=== PATIENT | female | born 1985 | race Caucasian/White ===

== ENCOUNTER 2017-07-01 13:54 | Inpatient (IN) | payer BC ==
[2017-07-01] MEDS ORDERED: Penicillin G Potassium IV* 5,000,000 UNITS in NS 0.9% 100 ML* 100 ML IVPB ONE (14:47)
[2017-07-01 15:39] LABS: ABS Basophils 0 10^3/ul (0-0.2); ABS Eosinophils 0 10^3/ul (0-0.6); ABS Lymphocytes 1.3 10^3/ul (1.0-4.8); ABS Monocytes 0.4 10^3/ul (0-0.8); ABS Neutrophils 6.2 10^3/ul (1.5-7.7); ABS Nucleated RBC 0 10^3/ul; Eosinophil % 0.5 % (0-6); Hematocrit 39 % (35-47); Hemoglobin 13.6 g/dl (12.0-16.0); Lymphocyte % 16.8 % (25-47); Mean Corpuscular HGB Conc 35 g/dl (31-36); Mean Corpuscular Hemoglobin 34 pg (27-31); Mean Corpuscular Volume 97 fL (80-97); Mean Platelet Volume 9 um3 (7.4-10.4); Nucleated Red Blood Cells % 0; Platelet Count 177 10^3/ul (150-450); Red Blood Count 3.98 10^6/ul (4.0-5.4); Red Cell Distribution Width 15 % (10.5-15)
[2017-07-01] MEDS: Penicillin G Potassium IV* 2,500,000 UNITS in NS 0.9% 100 ML* 100 ML IVPB SCH ×2 (19:34→23:39)
[2017-07-01] MEDS ORDERED: OBEPIDURAL* 250 ML EPIDURAL ONE (19:47)
--- NOTE | 2017-07-01 20:20 | HP ---
General Information - General Information Maternal Age: 32 Grav: 1 Para: 0 SAB: 0 IEA: 0 Estimated Due Date: 06/27/17 Determined By: LMP Gestational Age in Weeks and Days: 40 Weeks and 4 Days Maternal Blood Type and Rh: O Positive - Results this Serology/RPR Result: Non-Reactive Rubella Result: Immune HBsAg Result: Negative HIV Result: Negative GBS Culture Result: Positive Past Medical History Delivery History: See Records Pertinent Past Medical History: Non-Contributory Pertinent Past Surgical History: See Records Past Surgical History Comment: h/o tonsillectomy, ACL repair Pertinent Family History: Non-Contributory - Antepartal Records Antepartal Records: Reviewed, Complicated by: - h/o HSV, used valtrex from 36 wks until a few days ago when she ran out Review of Systems Constitutional: Comfortable CV Complaint: No Respiratory: Shortness of Breath: No Gastrointestinal: No Nausea/Vomiting, Normal Bowel Movement Genitourinary: Leaking Fluid - since about 1300, No Dysuria, No Bleeding Musculoskeletal: Contractions - started slowly, as of about 5:00, much stronger and about every 2-6 min Neurological: No Headache Movement: Normal Exam Allergies/Adverse Reactions: Allergies clindamycin Allergy (Verified 07/01/17 14:50) Hives/Diff.Breathing/Itching T99, P66, 123/77 Lab Values - Entire Visit: Laboratory Tests 07/01/17 07/01/17 15:15 15:15 WBC 8.0 RBC 3.98 L Hgb 13.6 Hct 39 MCV 97 MCH 34 H MCHC 35 RDW 15 Plt Count 177 MPV 9 Neut % (Auto) 77.8 Lymph % (Auto) 16.8 L Nelson % (Auto) 4.6 Eos % (Auto) 0.5 Baso % (Auto) 0.3 Absolute Neuts (auto) 6.2 Absolute Lymphs (auto) 1.3 Absolute Monos (auto) 0.4 Absolute Eos (auto) 0 Absolute Basos (auto) 0 Absolute Nucleated RBC 0 Nucleated RBC % 0 Blood Type O Positive Antibody Screen Negative - Measurements Height: 5 ft 5 in Weight: 151 lb Weight in lbs: 151 Body Mass Index (BMI): 25.1 Pre- Weight: 131 lb Weight Gained This : 20 lbs and 0 ozs - Exam Breast: Breast Exam Deferred Extremities: No Edema Heart: Normal Rhythm/Heart Sounds Lungs: Clear Bilaterally Rectal: Rectal Exam Deferred - Cervical Exam 1cm/90%/-2, vtx, grossly ruptured - Abdominal Exam Abdomen Exam: Non-Tender, Fundal Height Consistent with Dates Abdomen Exam Comment: EFW 7.5 lbs - Membranes Membrane Status: SROM - Ultrasound/Biophysical Profile Ultrasound Status: Not Done EFM Findings - External Monitor Findings Baseline Heart Rate: 135 External Monitor Findings: Accelerations Present, No Pattern of Variable or Late Decelerations, Variability Moderate Contractions: Irregular, Moderate, Strong Contraction Frequency: Q2-6 min Assessment/Plan - Reason for Visit Reason for Visit: Pt with SROM this afternoon, contractions initially slow but now getting more intense. Cervix in clinic was FT/50%, membranes swept. Now much more effaced. FHT reassuring - Obstetrical Risk Factors Obstetrical Risk Factors: GBS Positive, Post-Dates - Plan Plan: Early Labor, Antibiotic Prophylaxis Plan Comment: Admit to L&D, PCN for GBS Plan pitocin if contractions become more irregular or milder. Pt desires epidural when pain becomes worse. - Date/Time of Admission Date of Admission: 07/01/17 Time of Admission: 17:00
[2017-07-01] MEDS ORDERED: Famotidine TAB* 20 MG PO PRN (20:50)
[2017-07-01] MEDS ORDERED: Phenylephrine IV* 40 MCG/ML 10 ML SYRINGE IV PUSH PRN (20:50)
[2017-07-01] MEDS ORDERED: EPHEDrine (Pressors)* 50 MG/ML VIAL IV PUSH PRN ×2 (20:50)
[2017-07-01] MEDS ORDERED: Hetastarch in NS* 500 ML IV PRN (20:50)
[2017-07-01] MEDS ORDERED: Sodium Citrate/Citric Acid* 15 ML UDC PO PRN (20:50)
[2017-07-01] MEDS ORDERED: OBEPIDURAL* 250 ML EPIDURAL SCH (21:00)
[2017-07-01] MEDS ORDERED: Oxytocin in LR* 20 UNITS/1,000 ML BAG IVPB SCH (23:00)
[2017-07-02] MEDS: Phenylephrine IV* 40 MCG/ML 10 ML SYRINGE IV PUSH PRN ×2 (03:16→05:06)
[2017-07-02] MEDS: Penicillin G Potassium IV* 2,500,000 UNITS in NS 0.9% 100 ML* 100 ML IVPB SCH ×3 (03:22→11:28)
[2017-07-02] MEDS ORDERED: D5LR 1000 ML BAG* 1,000 ML IV SCH (07:00)
[2017-07-02] MEDS ORDERED: Glycerin ADULT SUPP PR PRN (13:53)
[2017-07-02] MEDS ORDERED: Acetaminophen TAB* 325 MG PO PRN (13:53)
[2017-07-02] MEDS ORDERED: Witch Hazel PAD* JAR TOPICAL PRN (13:53)
[2017-07-02] MEDS ORDERED: Dibucaine 1% 28.35 GM TUBE PR PRN (13:53)
[2017-07-02] MEDS ORDERED: Oxytocin in LR* 20 UNITS/1,000 ML BAG IVPB SCH (14:00)
[2017-07-02] MEDS ORDERED: Ammonia Inhalant* 1 EA AMP ONE (14:47)
[2017-07-02] MEDS ORDERED: Ibuprofen TAB* 600 MG ONE (14:58)
[2017-07-02] MEDS ORDERED: Dibucaine 1% 28.35 GM TUBE ONE (14:58)
[2017-07-02] MEDS ORDERED: Witch Hazel PAD* JAR ONE (14:58)
[2017-07-02] MEDS: Ibuprofen TAB* 600 MG PO PRN ×2 (15:34→20:54)
[2017-07-02] MEDS: Docusate CAP* 100 MG PO SCH ×2 (16:16→20:54)
[2017-07-02] MEDS ORDERED: Simethicone TAB* 80 MG TAB.CHEW PO SCH (17:30)
[2017-07-03] MEDS: Ibuprofen TAB* 600 MG PO PRN ×4 (04:11→21:53)
[2017-07-03] MEDS: Docusate CAP* 100 MG PO SCH ×3 (08:39→21:53)
[2017-07-03] MEDS ORDERED: Ferrous Gluconate TAB* 324 MG TAB PO SCH (09:00)
[2017-07-03 10:52] LABS: ABS Basophils 0.1 10^3/ul (0-0.2); ABS Eosinophils 0.1 10^3/ul (0-0.6); ABS Lymphocytes 1.8 10^3/ul (1.0-4.8); ABS Monocytes 0.6 10^3/ul (0-0.8); ABS Neutrophils 10.2 10^3/ul (1.5-7.7); ABS Nucleated RBC 0 10^3/ul; Eosinophil % 1.1 % (0-6); Hematocrit 33 % (35-47); Hemoglobin 11.2 g/dl (12.0-16.0); Lymphocyte % 13.9 % (25-47); Mean Corpuscular HGB Conc 34 g/dl (31-36); Mean Corpuscular Hemoglobin 34 pg (27-31); Mean Corpuscular Volume 99 fL (80-97); Mean Platelet Volume 10 um3 (7.4-10.4); Nucleated Red Blood Cells % 0.1; Platelet Count 137 10^3/ul (150-450); Red Blood Count 3.31 10^6/ul (4.0-5.4); Red Cell Distribution Width 15 % (10.5-15); White Blood Count 12.7 10^3/ul (3.5-10.8)
--- NOTE | 2017-07-03 15:19 | PTEDU ---
Patient Name: ANISA MUÑOZ ANISA MUÑOZ selected video: Follow Me Mum: [employer] [facility] Successful to view on 07/03/2017 at 3:17:48 PM from [id number]
[2017-07-04] MEDS: Ibuprofen TAB* 600 MG PO PRN ×2 (04:20→10:40)
[2017-07-04 08:04] VITALS: BP 111/63
[2017-07-04] MEDS: Docusate CAP* 100 MG PO SCH (10:40)
== END 2017-07-04 13:02 | disposition home or self-care (01) | DRG 542 ==
LOC: MCHOBOUT 13:54 → MCHOB 14:39
PROVIDERS: ADMIT Obstetrics & Gynecology; ATTEND Obstetrics & Gynecology
PROC: 10D07Z6 Extraction of Products of Conception, Vacuum, Via Natural or Artificial Opening (ICD-10-PCS; principal; 2017-07-02)
PROC: 0DQR0ZZ Repair Anal Sphincter, Open Approach (ICD-10-PCS; 2017-07-02)
DX: O48.0 Post-term pregnancy (principal); O70.20 Third degree perineal laceration during delivery, unspecified; D64.9 Anemia, unspecified; O99.824 Streptococcus B carrier state complicating childbirth; O69.81X0 Labor and delivery complicated by cord around neck, without compression, not applicable or unspecified; O90.81 Anemia of the puerperium; Z3A.40 40 weeks gestation of pregnancy; Z37.0 Single live birth
CPT/HCPCS: 36415; 59200; 85025; 86850; 86900; 86901; A9270-GY; J2540

== ENCOUNTER 2017-09-08 07:32 | Day surgery (SDC) | payer BC ==
--- NOTE | 2017-08-27 07:07 | HP ---
CC: Ben Olivares MD * PREOPERATIVE HISTORY AND PHYSICAL: DATE OF ADMISSION: 09/08/17 This patient is scheduled for same-day surgery admission by Dr. Conroy on 09/08/17. DATE OF PREOPERATIVE HISTORY AND PHYSICAL EXAMINATION: 08/26/17. ATTENDING SURGEON: Julio C Conroy MD * (dictated by Klaudia May NP) CHIEF COMPLAINT: Left inguinal hernia. HISTORY OF PRESENT ILLNESS: The patient is a 32-year-old female recently evaluated by Dr. Conroy for a left inguinal hernia. She delivered a baby girl 8 weeks ago and she had noticed soreness in the left inguinal region during her , and she had also noticed bulging in the right groin at the end of her , but she denied any pain in the right inguinal region. She denies any signs or symptoms to suggest incarceration or strangulation. She denies any dysuria or fevers or chills. Dr. Conroy has examined the patient and noted a reducible small left inguinal hernia. There was no right inguinal hernia palpated. Dr. Conroy discussed the findings with the patient and has recommended laparoscopic repair of the left inguinal hernia with mesh and exploration for right inguinal hernia with possible repair with mesh. Dr. Conroy discussed the nature of the surgical procedure, the relevant risks and benefits, the same-day surgery hospitalization, and today I reviewed the expected postoperative care and recovery. The patient has had a chance to ask questions and stated that she understands the information and is satisfied with the answers given to her questions. She will sign surgical consent on the day of surgery. PAST MEDICAL HISTORY: Significant for syncopal episodes with the last one occurring 1 year ago. She states that in 2010, she had a complete cardiac workup when she was living in [place], and she was told that her syncopal episodes were related to dehydration; she reports that her EKG typically shows inverted T waves in the anterior leads and this is normal for her. She has had no recent syncopal episodes. PAST SURGICAL HISTORY: Tonsillectomy and ACL reconstruction, both in 2006. OB HISTORY: 1, para 1. She delivered 8 weeks ago and is breast- feeding. MEDICATIONS: 1. Colace 100 mg 2 to 3 times a day as needed. 2. vitamin daily. ALLERGIES: CLINDAMYCIN causes rash. 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 She denies use of alcohol or other substances. She runs 5 to 6 times a week for exercise. FAMILY HISTORY: No known anesthesia complications, bleeding tendencies, or clotting disorders. REVIEW OF SYSTEMS: Constitutional: No fevers, chills, excessive fatigue. Endocrine: No diabetes or thyroid disease. Hematologic: No easy bruising or bleeding. No history of blood transfusions. Breasts: She is breast feeding. Respiratory: No dyspnea on exertion or chronic cough. Cardiovascular: No anginal chest pain or palpitations. She does have a history of syncopal episodes as described in past medical history. No recent syncopal episodes. Gastrointestinal: No nausea, vomiting, diarrhea, GI bleeding; she does take Colace for prevention of constipation. Genitourinary: No dysuria. Musculoskeletal: No joint or back pain. Integumentary: No chronic rashes or skin changes. Neurologic: No headache or blurred vision. General: No previous anesthesia complications or bleeding tendencies or clotting disorders. PHYSICAL EXAMINATION GENERAL SURVEY: The patient is a 32-year-old female, well developed, well nourished, in no acute distress. VITAL SIGNS: Height 65.2 Inches, weight 129 pounds, body mass index 21. Blood pressure 118/70, pulse 72 and regular, respiratory rate 16, temperature 98.6 tympanic. HEENT: Benign. NECK: Supple. No cervical lymphadenopathy. LUNGS: Breath sounds bilaterally, clear and equal. HEART: Regular rate and rhythm. No murmurs or rubs appreciated. ABDOMEN: Active bowel sounds. Soft, nondistended, nontender throughout. Inguinal exam is done by Dr. Conroy, reducible small left inguinal hernia. No right inguinal hernia palpated. PELVIC: Exam deferred. RECTAL: Exam deferred. EXTREMITIES: Warm without edema or skin ulceration. NEUROLOGIC: Alert and oriented x3. Steady gait. SKIN: Warm, dry, intact. IMPRESSION: Left inguinal hernia, possible right inguinal hernia. PLAN: Same-day surgery admission to Dr. Conroy' service on 09/08/17, for a laparoscopic left inguinal hernia repair with mesh and exploration for right inguinal hernia with possible repair with mesh. SONNY MAY, BOAT OFFICER [id number]/[facility] #: [id number] MAN[facility] PSYCHIATRIC CENTERAdriana
[~2017-09-08 07:32] MED LIST: Buffered Lidocaine 0.9% SYRIN* 5 ML/SYR SYRINGE INTRADERM ONE; Famotidine IV* 10 MG/ML 2 ML (20 mg) IV ONE
[2017-09-08] MEDS ORDERED: Midazolam* 1 MG/ML 5 ML VIAL (5 MG) ONE (07:46)
[2017-09-08] MEDS ORDERED: fentaNYL* 50 MCG/ML 2 ML VIAL (100 MCG VIAL) ONE ×2 (07:46→10:20)
[2017-09-08] MEDS ORDERED: Rocuronium* 10 MG/ML VIAL ONE (08:06)
[2017-09-08] MEDS ORDERED: ceFAZolin 2 GM PREMIX (*) 2 GM/50 ML BAG IVPB ONE (08:11)
[2017-09-08] MEDS ORDERED: Famotidine IV* 10 MG/ML 2 ML (20 mg) ONE (08:11)
[2017-09-08] MEDS ORDERED: Buffered Lidocaine 0.9% SYRIN* 5 ML/SYR SYRINGE ONE (08:11)
[2017-09-08] MEDS ORDERED: Bupivacaine 0.25% SDV* 30 ML ONE (08:31)
[2017-09-08] MEDS ORDERED: Ondansetron INJ* 2 MG/ML VIAL IV ONE (09:31)
[2017-09-08] MEDS ORDERED: DiMENhydriNATE IV* 50 MG/ML VIAL IV PUSH PRN (09:40)
[2017-09-08] MEDS ORDERED: Acetaminophen IV 1GM/100ML * 1,000 MG/100 ML VIAL IVPB ONE (09:40)
[2017-09-08] MEDS ORDERED: Naloxone* 0.4 MG/ML 1 ML VIAL IV PRN (09:40)
[2017-09-08] MEDS ORDERED: DiMENhydriNATE IV* 50 MG/ML VIAL ONE ×2 (09:44→12:16)
[2017-09-08] MEDS ORDERED: Lidocaine 2% PF * 5 ML VIAL ONE (09:44)
[2017-09-08] MEDS ORDERED: Propofol* 10 MG/ML 20 ML BTL IV PUSH ONE ×2 (09:44→11:00)
[2017-09-08] MEDS ORDERED: Dexamethasone IV* 4 MG/ML 1 ML (4 MG) ONE (09:44)
[2017-09-08] MEDS ORDERED: Succinylcholine* 20 MG/ML 10 ML VIAL ONE (09:44)
[2017-09-08] MEDS ORDERED: Ketorolac INJ* 30 MG/ML 1 ML VIAL ONE (09:44)
[2017-09-08] MEDS ORDERED: Acetaminophen IV 1GM/100ML * 100 ML ONE (10:59)
--- NOTE | 2017-09-08 11:17 | PN ---
Progress Note - Progress Note Date of Service: 09/08/17 Note: Preop Dx: Left Inguinal Hernia; possible Right Inguinal Hernia Postop Dx: bilateral indirect inguinal hernias Procedure: Laparoscopic repair bilateral inguinal hernias w/ mesh Anesthesia: GET Surgeon: Marycarmen Asst: KARIN Abdalal; VIKASH Aleman Fluids: 1300 ml EBL: < 25 ml Drains:none Specimen:none Findings: dictated
[2017-09-08] MEDS ORDERED: HYDROmorphone INJ* 2 MG/ML CARPUJECT SYRINGE ONE (11:37)
[2017-09-08] MEDS: HYDROmorphone INJ* 1 MG/ML CARPUJECT SYRINGE IV PRN ×3 (11:38→12:04)
[2017-09-08] MEDS ORDERED: oxyCODONE TAB* 5 MG TAB ONE ×2 (12:14→14:24)
[2017-09-08] MEDS: oxyCODONE TAB* 5 MG TAB PO PRN ×2 (12:15→14:26)
[2017-09-08 13:48] VITALS: BP 106/55
--- NOTE | 2017-09-09 06:30 | OP ---
CC: Dr. Ben Olivares * DATE OF OPERATION: 09/08/17 - [facility] DATE OF : 87 SURGEON: Julio C Conroy MD SERVICE LIAISON REPRESENTATIVE: KARIN Fuchs ANESTHESIA: General endotracheal. ANESTHESIOLOGIST: Zoey Agarwal MD PRE-OP DIAGNOSIS: Left inguinal hernia. POST-OP DIAGNOSIS: Bilateral inguinal hernias. OPERATIVE PROCEDURE: Laparoscopic preperitoneal repair of bilateral inguinal hernias with mesh. ESTIMATED BLOOD LOSS: Minimal. IV FLUIDS: Crystalloids. SPECIMEN: None. DRAINS: None. COMPLICATIONS: None. COUNTS: The instrument, needle, and sponge counts were correct. DESCRIPTION OF PROCEDURE: The patient was brought to the operating room and placed on table supine. Sequential compression devices were placed on both lower extremities. General anesthesia was administered. Lopez catheter was placed. Her abdomen was prepped and draped in the usual sterile fashion. Time- out was performed. Local anesthetic was infiltrated into the skin and soft tissue prior to making each incision. The initial incision was a curvilinear infraumbilical incision using sharp and blunt dissection. The anterior rectus fascia was identified to the left of midline and the rectus fascia was incised. The underlying muscle was retracted laterally. A preperitoneal balloon dissector was then positioned down to the pubic symphysis and insufflated under direct visualization. The peritoneal blunt dissector was removed and replaced with a 12-mm blunt trocar. Carbon dioxide was insufflated to a pressure of 10 mmHg. Two 5-mm trocars were placed in the lower midline. Dissection proceeded from the midline to the left side initially, identifying and preserving the inferior epigastric vessels and completing dissection on lateral to the anterior superior iliac spine. An indirect inguinal hernia was identified. The sac was dissected off the round ligament and sac was entered during this dissection. Ultimately, it was closed with endoscopic clips. The attention was then turned to the right side where a similar hernia was identified with again the sac being entered and subsequently closed with endoscopic clips. Repair on each side was performed with the Medtronic ProGrip mesh, which was cut to fashion patches that would cover the direct, indirect, and femoral spaces. The mesh was positioned first on the right side being sure to bring this mesh to the midline and below the Lonnie's ligament and then unfurling it fully to complete the repair of the right side. The repair was then completed on the left side in similar fashion and after completing that the preperitoneal space was allowed to deflate and because of intraperitoneal gas, peritoneoscopy was performed. The 12-mm port was removed and then its position was reestablished within the peritoneal cavity. The peritoneal cavity was insufflated with carbon dioxide to a pressure of 15 mmHg. Inspection of the inguinal regions revealed excellent coverage of the mesh with no openings within in the peritoneum. Subsequently carbon dioxide was released. The ports were removed. The infraumbilical port site was closed with 0 Vicryl to approximate the posterior rectal sheath and anterior rectus sheath in 2 layers. The skin incisions were then closed with 4-0 Monocryl in subcuticular fascia. Steri-Strips were applied. The patient tolerated this procedure well. She was extubated, then transferred to Recovery in a stable condition. [id number]/[facility] #: [id number] MTDAdriana
== END 2017-09-08 14:38 | disposition home or self-care (01) ==
LOC: OR 07:32
PROVIDERS: ATTEND Surgery
DX: K40.20 Bilateral inguinal hernia, without obstruction or gangrene, not specified as recurrent (principal); R94.31 Abnormal electrocardiogram [ECG] [EKG]; K58.9 Irritable bowel syndrome, unspecified
CPT/HCPCS: 81025; A9270-GY; J0330; J0690; J1100; J1170; J1240; J1885; J2250; J2405; J2704; J3010

== ENCOUNTER 2018-09-04 17:31 | Emergency (ER) | payer BC ==
--- OUTSIDE RECORDS SUMMARY | 2018-09-04 17:51 | XMS REPORT | Continuity of Care Document ---
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 Ben Olivares MD Primary Care Physician Unavailable Payers Date Identification Numbers Payment Provider Subscriber Effective: 2016 Policy Number: [id number] BC/BS Of KALIA Julio C Almeida PayID: [id number] [place] [address] Advance Directives Description No Information Available Problems Description No Information Family History Date Family Member(s) Observation Comments Father 65 Father No Current Problems Mother 64 Mother No Current Problems Paternal Grandmother Alcoholism Paternal Grandmother [place] Social History Type Date Description Comments Sex Unknown Education Highest Level Completed, Master's Degree Marital Status Legal Status: Diet Healthy, Well Balanced Sleep Reports normal sleep activity 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[employer], [employer] Tobacco Use Start: Unknown Never Smoked Cigarettes ETOH Use Social Alcohol Recreational Drug Use Denies Drug Use Tobacco Use Start: Unknown Nonsmoker Smoking Status Reviewed: 10/28/16 Nonsmoker Exercise Type/Frequency Exercises regularly Currently Active 09/01/2016 Patient is currently sexually active STD's No STD History Allergies, Adverse Reactions, Alerts Active Allergies Reaction Severity Comments Date Clindamycin rash 08/28/2016 Seasonal 08/28/2016 Medications Active Medications SIG Qnty Indications Ordering Provider Date Amoxicillin 1 tablet twice a 14tabs J02.0 Ben Olivares, 08/11/2018 875mg day for 7 days. M.D. Tablets Claritin use by mouth Unknown 10mg Tablets everyday every day Unknown Tablets History Medications Diflucan take 1 tablet by 2tabs Meagan Vang 08/03/2018 - 150mg Tablets mouth for one DAVID Oden 08/11/2018 dose may repeat in 3-5 days Amoxicillin/Clavulanat 1 by mouth twice 14tabs J01.00 Omkar Gordon 2018 - e Potassium a day MD Charlene 08/03/2018 875-125mg Tablets Atovaquone-Proguanil 1 by mouth every 30tabs [place] 08/28/2016 - HCL day starting 2 LUCAS Falcon 10/28/2016 250-100mg Tablets days prior to travel and continuing x 7 days after return Fludrocortisone Unknown - Acetate 07/06/2018 0.1mg Tablets Immunizations CPT Code Status Date Vaccine Lot # [id number] Given 08/28/2016 Hep A Adlt Immunization [id number] Vital Signs Date Vital Result Comment 08/11/2018 9:09am BP Systolic 102 mmHg BP Diastolic 68 mmHg Heart Rate 72 /min Body Temperature 97.9 F Respiratory Rate 18 /min Weight 122.38 lb 07/07/2018 4:28pm BP Systolic 116 mmHg BP Diastolic 60 mmHg Heart Rate 72 /min Body Temperature 98.6 F Respiratory Rate 16 /min Height 65 inches 5'5" Weight 124.50 lb BMI (Body Mass Index) 20.7 kg/m2 10/28/2016 12:58pm BP Systolic 114 mmHg BP Diastolic 62 mmHg Heart Rate 64 /min Body Temperature 98.7 F Height 65 inches 5'5" Weight 129.25 lb BMI (Body Mass Index) 21.5 kg/m2 08/28/2016 3:07pm BP Systolic 110 mmHg BP Diastolic 70 mmHg Heart Rate 66 /min Body Temperature 98.6 F Height 65 inches 5'5" Weight 128.25 lb BMI (Body Mass Index) 21.3 kg/m2 Results Test Date Facility Test Result H/L Range Note Laboratory test 08/11/2018 [facility] TSH <pending> 0.5-5.0 finding Laboratory test 08/11/2018 [facility] Quickstrep POSITIVE Negative finding (607)- - Urine 10/28/2016 [facility] SP Grav 1.015 (Fma) (607)- - Urine, (Fma/CMC/CTX) positive Ua - Non Micro (Fma) 10/28/2016 [facility] Appearance clear (607)- - Color yellow Glucose, Urine (Fma/CMC/CTX) negative Bilirubin negative Ketones negative SP Grav 1.015 Blood negative PH 5.0 Protein negative Urobil 0.2 Nitrite negative Leukocytes (Fma/CMC/Centrex) negative Procedures Description No Information Available Encounters Type Date Location Provider Dx Diagnosis Office Visit 07/07/2018 Main Office Omkar Gordon J01.00 Acute maxillary 4:00p MD Charlene sinusitis, unspecified Office Visit 10/28/2016 Main Office Ana Dang, N91.1 Secondary amenorrhea 1:00p Afnp-C Office Visit 08/28/2016 Main Office Cary Falcon, Z00.00 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 Start salt water gargles. Sambucol Cold and Flu Elderberry Tablets. Start Vitamin C 2,000 mg. Good nutrient filled foods- fruits, vegetables.N76.0 Acute vaginitisComments:Wait until swab comes back, may be bacterial component. Not overly symptomatic.
--- NOTE | 2018-09-04 18:00 | ED ---
Abdominal Pain/Female - HPI Summary HPI Summary: This patient is a 33 year old F presenting to [facility] accompanied by her with a chief complaint of lower cramping abdominal pain with multiple bouts of diarrhea with increasing amounts of blood with each bout after a run today around 12:30pm. Pain rated 4/10 in severity. Patient reports feeling generally ill and fatigued prior to onset of symptoms. Patient reports multiple illness for the past two months beginning with strep, requiring 10 days of abx and two yeast infections requiring 7 days of antibiotics. Additionally reports productive cough for the past 13 days that is worse at night and in the morning. MP 08/23/18. Has an appointment scheduled with her PCP on 09/06/18. - History of Current Complaint Chief Complaint: Con Stated Complaint: "ABD PAIN BLOOD IN STOOL PER PT" Time Seen by Provider: 09/04/18 17:45 Hx Obtained From: Patient Hx Last Menstrual Period: 08/23/18 Onset/Duration: Lasting Hours Timing: Constant Severity Currently: Moderate Pain Intensity: 4 Pain Scale Used: 0-10 Numeric Location: Other - lower Radiates: No Character: Cramping Aggravating Factor(s): Nothing Alleviating Factor(s): Nothing Associated Signs and Symptoms: Positive: Cough, Blood in Stool, Diarrhea Allergies/Adverse Reactions: Allergies Allergy/AdvReac Type Severity Reaction Status Date / Time clindamycin Allergy Hives/Itchi Verified 09/04/18 17:38 ng ENVIRONMENTAL Allergy SEASONAL Uncoded 09/08/17 07:50 PMH/Surg Hx/FS Hx/Imm Hx Cardiovascular History: Reports: Other Cardiovascular Problems/Disorders - HX OF VASOVAGAL-USUALLY WITH DEHYDRATION Denies: Hx Pacemaker/ICD GI History: Reports: Hx Irritable Bowel Sensory History: Denies: Hx Contacts or Glasses, Hx Hearing Aid Opthamlomology History: Denies: Hx Contacts or Glasses EENT History: Reports: Hx Seasonal Allergies - Surgical History Surgery Procedure, Year, and Place: 05/2006-LEFT KNEE ACL REPAIR. 11/2006- TONSILLECTOMY Hx Anesthesia Reactions: No Infectious Disease History: No Infectious Disease History: Denies: Traveled Outside the [place] in Last 30 Days - Family History Known Family History: Negative: Blood Disorder - Social History Alcohol Use: Occasionally Substance Use Type: Reports: None Smoking Status (MU): Never Smoked Tobacco Review of Systems Positive: Fatigue Positive: Cough Positive: Abdominal Pain, Diarrhea - with blood. Negative: Vomiting All Other Systems Reviewed And Are Negative: Yes Physical Exam - Summary Physical Exam Summary: Appearance: Well-appearing, Well-nourished, lying in bed comfortably Skin: Warm, dry, no obvious rash Eyes: sclera anicteric, no conjunctival pallor ENT: mucous membranes moist, pharynx appears normal Neck: Supple, nontender Respiratory: Clear to auscultation, no signs of respiratory distress Cardiovascular: Normal S1, S2. No murmurs. Normal distal pulses in tibial and radial bilaterally. Abdomen: Soft, normal active bowel sounds present Mild lower abdominal tenderness with peritoneal signs, normal rectal exam Musculoskeletal: Normal, Strength/ROM Intact Neurological: A&Ox3, awake and alert, mentation is normal, speech is fluent and appropriate Psychiatric: affect is normal, does not appear anxious or depressed Triage Information Reviewed: Yes Vital Signs On Initial Exam: Initial Vitals Temp Pulse Resp BP Pulse Ox 99.5 F 78 16 134/89 98 09/04/18 17:33 09/04/18 17:33 09/04/18 17:33 09/04/18 17:33 09/04/18 17:33 Vital Signs Reviewed: Yes Diagnostics - Vital Signs Vital Signs Temp Pulse Resp BP Pulse Ox 09/04/18 17:33 99.5 F 78 16 134/89 98 - Laboratory Result Diagrams: 09/04/18 18:01 09/04/18 18:01 Lab Statement: Any lab studies that have been ordered have been reviewed, and results considered in the medical decision making process. Re-Evaluation - Re-Evaluation First Eval Re-Evaluation Time: 21:15 Comment: Discussed results with the patient and plan for a CT. Abdominal Pain Fem Course/Dx - Course Course Of Treatment: 33 year old F presenting to [facility] accompanied by her with a chief complaint of lower cramping abdominal pain with multiple bouts of diarrhea with increasing amounts of blood with each bout after a run today around 12:30pm. Stool occult blood is positive. Patient is given singulair and zyrtec for respiratory complaints. This patient will be signed out to Dr. Evans, pending CT abd/pel. Dx colitis. - Diagnoses Differential Diagnosis: Positive: Other - colitis Provider Diagnoses: Infectious colitis Discharge - Sign-Out/Discharge Documenting (check all that apply): Sign-Out Patient - pending dispo, awaiting CT abd/pel Signing out patient TO: Dmitriy Evans Patient Received Moderate/Deep Sedation with Procedure: No - Discharge Plan Condition: Stable Disposition: HOME Prescriptions: Levofloxacin TAB* [Levaquin TAB*] 500 mg PO DAILY #7 tab metroNIDAZOLE [Flagyl 500 MG TAB] 500 mg PO TID #20 tab oxyCODONE/Acetamin 5/325 MG* [Percocet 5/325 TAB*] 1 tab PO Q6H PRN #14 tab MDD 4 PRN Reason: Pain Patient Education Materials: Infectious Colitis (ED) Referrals: Ben Olivares MD [Primary Care Provider] - Additional Instructions: In terms of your GI symptoms, the most likely culprit seems to be some type of infection, but those tests take several days to come back. In terms of your respiratory symptoms, I am inclined to ramp up your allergy medications before thinking about another course of antibiotics. Try the claritin daily, and the singulair taken at bedtime. If it's going to work you will generally know in a few days. - Billing Disposition and Condition Condition: STABLE Disposition: Home - Attestation Statements Document Initiated by Luis M: Yes Documenting Scribe: Suzi Kelly Provider For Whom Luis M is Documenting (Include Credential): Kevin Fitch MD Scribe Attestation: ISuzi, scribed for Kevin Fitch MD on 09/06/18 at 0715. Scribe Documentation Reviewed: Yes Provider Attestation: The documentation as recorded by the Suzi moran accurately reflects the service I personally performed and the decisions made by me, Kevin Fitch MD Status of Scribe Document: Viewed
[2018-09-04] MEDS ORDERED: Montelukast Sodium TAB* 10 MG PO ONE (18:05)
[2018-09-04] MEDS ORDERED: LoraTADine TAB(NF) 10 MG TAB (AUTOSUB to CETIRIZINE) PO ONE (18:05)
[2018-09-04 18:25] LABS: ABS Basophils 0.1 10^3/ul (0-0.2); ABS Eosinophils 0.1 10^3/ul (0-0.6); ABS Lymphocytes 1.1 10^3/ul (1.0-4.8); ABS Monocytes 0.6 10^3/ul (0-0.8); ABS Neutrophils 6.3 10^3/ul (1.5-7.7); Hematocrit 40 % (35-47); Hemoglobin 13.5 g/dL (12.0-16.0); Lymphocyte % 13.8 %; Mean Corpuscular HGB Conc 34 g/dL (31-36); Mean Corpuscular Hemoglobin 31 pg (27-31); Mean Corpuscular Volume 94 fL (80-97); Mean Platelet Volume 8.7 fL (7.4-10.4); Platelet Count 201 10^3/uL (150-450); Red Cell Distribution Width 13 % (10.5-15); White Blood Count 8.1 10^3/uL (3.5-10.8)
[2018-09-04] MEDS ORDERED: Cetirizine* 10 MG TAB PO ONE (18:30)
[2018-09-04 18:40] LABS: Albumin 4.3 g/dL (3.2-5.2); Albumin/Globulin Ratio 1.8 (1-3); BUN/Creatinine Ratio 21.7 (8-20); C Reactive Protein 1.67 mg/L (<8.01); Calcium 9.7 mg/dL (8.6-10.3); EGFR African American 96.4 (>60); EGFR Non-African American 79.7 (>60); Globulin 2.4 g/dL (2-4); Potassium 3.9 mmol/L (3.5-5.0); Total Bilirubin 0.4 mg/dL (0.2-1.0); Total Protein 6.7 g/dL (6.4-8.9)
[2018-09-04] MEDS ORDERED: Ondansetron INJ* 2 MG/ML VIAL IV ONE (19:28)
[2018-09-04] MEDS ORDERED: NS 0.9% 1000 ML** 2,000 ML IV ONE (19:28)
[2018-09-04] MEDS ORDERED: Iohexol 300* (CONTRAST) 10 ML SDV IV ONE (21:01)
[2018-09-04 21:13] LABS: Urine Appearance Clear; Urine Bilirubin Negative (Negative); Urine Blood Negative (Negative); Urine Color Yellow; Urine Glucose Negative (Negative); Urine Ketones Trace (Negative); Urine Nitrite Negative (Negative); Urine Protein Negative (Negative); Urine Specific Gravity 1.012 (1.010-1.030); Urine Urobilinogen Negative (Negative)
--- NOTE | 2018-09-04 22:16 | ED ---
Progress - Progress Note Progress Note: Receiving sign-out from Dr. Fitch at [address] Abd/Pel. CT Abd/Pel: Infectious colitis cecum through proximal transverse colon. Results are significant for infectious colitis. Patient will be discharged and prescribed ABx to treat the colitis. This plan was discussed with the patient and she was agreeable with this plan. Re-Evaluation - Re-Evaluation First Eval Re-Evaluation Time: 21:15 Comment: Discussed results with the patient and plan for a CT. Course/Dx - Course Course Of Treatment: Receiving sign-out from Dr. Fitch at [address] Abd/ Pel. CT Abd/Pel: Infectious colitis cecum through proximal transverse colon. Results are remarkable for infectious colitis. Patient will be discharged and prescribed ABx to treat the colitis. This plan was discussed with the patient and she was agreeable with this plan. - Diagnoses Provider Diagnoses: Infectious colitis Discharge - Sign-Out/Discharge Documenting (check all that apply): Patient Departure, Receiving Sign-Out Receiving patient FROM: Kevin Fitch - At 2200 Patient Received Moderate/Deep Sedation with Procedure: No - Discharge Plan Condition: Stable Disposition: HOME Patient Education Materials: Infectious Colitis (ED) Referrals: Ben Olivares MD [Primary Care Provider] - Additional Instructions: In terms of your GI symptoms, the most likely culprit seems to be some type of infection, but those tests take several days to come back. In terms of your respiratory symptoms, I am inclined to ramp up your allergy medications before thinking about another course of antibiotics. Try the claritin daily, and the singulair taken at bedtime. If it's going to work you will generally know in a few days. - Attestation Statements Document Initiated by Walkeribe: Yes Documenting Scribe: Jayden Amaya Provider For Whom Luis M is Documenting (Include Credential): Dmitriy Evans MD Scribe Attestation: I, Jaydne Amaya, scribed for Dmitriy Evans MD on 09/05/18 at 0005. Status of Scribe Document: Ready
[2018-09-05] MEDS ORDERED: Levofloxacin TAB* 500 MG PO ONE (00:05)
[2018-09-05] MEDS ORDERED: Morphine 4 MG/ML VIAL (1 ml) 4 MG/ML VIAL IV ONE (00:05)
[2018-09-05] MEDS ORDERED: metroNIDAZOLE TAB* 250 MG PO ONE (00:06)
[2018-09-05 00:41] VITALS: BP 105/61
== END 2018-09-05 00:41 | disposition home or self-care (01) ==
LOC: ED 17:31
DX: A09 Infectious gastroenteritis and colitis, unspecified (principal)
CPT/HCPCS: 36415; 74177; 80053; 81003; 82272; 83605; 83690; 85025; 86140; 86850; 86900; 86901; 87040; 87045; 87046; 87077; 87493; 87899; 96361; 96374; 96375; 99283; A9270-GY; J2270; J2405; Q9967

== ENCOUNTER 2019-11-17 13:06 | Inpatient (IN) ==
[2019-11-17] MEDS ORDERED: Lactated Ringers 1000 ml BAG 1,000 ML IV ONE ×2 (14:17→20:45)
[2019-11-17 19:04] LABS: ABS Eosinophils 0.1 10^3/ul (0-0.6); ABS Lymphocytes 1.5 10^3/ul (1.0-4.8); ABS Monocytes 0.3 10^3/ul (0-0.8); Eosinophil % 0.9 %; Hematocrit 38 % (35-47); Hemoglobin 13.5 g/dL (12.0-16.0); Lymphocyte % 22.8 %; Mean Corpuscular HGB Conc 36 g/dL (31-36); Mean Corpuscular Hemoglobin 35 pg (27-31); Mean Corpuscular Volume 97 fL (80-97); Mean Platelet Volume 9.6 fL (7.4-10.4); Nucleated Red Blood Cells % 0.1; Platelet Count 175 10^3/uL (150-450); Red Blood Count 3.91 10^6 /uL (3.70-4.87); Red Cell Distribution Width 13 % (10-15); White Blood Count 6.7 10^3/uL (3.5-10.8)
[2019-11-17 19:22] LABS: Urine Benzodiazepine Screen None Detected (None Detect); Urine Opiates Screen None Detected (None Detect)
[2019-11-17] MEDS ORDERED: OBEPIDURAL 250 ML EPIDURAL ONE (19:49)
[2019-11-17] MEDS: Lactated Ringers 1000 ml BAG 1,000 ML IV SCH ×2 (19:52→22:45)
[2019-11-17] MEDS ORDERED: Bupivacaine 0.25% SDV PF 10 ML VIAL INJ ONE (20:16)
[2019-11-17] MEDS ORDERED: Lactated Ringers 1000 ml BAG 500 ML IV PRN ×2 (20:45)
[2019-11-17] MEDS ORDERED: Sodium Citrate/Citric Acid LIQ 15 ML UDC PO PRN (20:45)
[2019-11-17] MEDS ORDERED: Phenylephrine 40 mcg/mL 10mL (400mcg) SYRINGE IV PUSH PRN ×2 (20:45)
[2019-11-17] MEDS ORDERED: Lactated Ringers 1000 ml BAG 1,000 ML IV SCH (21:00)
[2019-11-17] MEDS ORDERED: OBEPIDURAL 250 ML EPIDURAL SCH (21:00)
[2019-11-17] MEDS ORDERED: Oxytocin in LR 20 UNITS/1,000 ML BAG IVPB ONE (22:39)
[2019-11-17] MEDS ORDERED: Oxytocin in LR 20 UNITS/1,000 ML BAG IVPB SCH (23:00)
[2019-11-17] MEDS ORDERED: Lidocaine 2% w/ EPI 1:200,000 MPF 20 ML SDV VIAL ONE (23:53)
[2019-11-17] MEDS ORDERED: Ondansetron 4 mg VIAL 2 MG/ML 2 ml VIAL ONE (23:54)
[2019-11-17] MEDS ORDERED: Dexamethasone IV 4 MG/ML VIAL 1 ml VIAL ONE (23:54)
[2019-11-17] MEDS ORDERED: Metoclopramide 5 MG/ML VIAL (10 mg) ONE (23:54)
[2019-11-17] MEDS ORDERED: Oxytocin 10 UNITS/ML 1 ML VIAL ONE (23:57)
[2019-11-18] MEDS ORDERED: ceFOXitin 2 GM IVPREMIX 2 GM/50 ML BAG IVPB ONE
[2019-11-18] MEDS ORDERED: ceFOXitin 2 GM IVPREMIX 2 GM/50 ML BAG ONE
[2019-11-18] MEDS ORDERED: EPHEDrine (Pressors) 50 MG/ML VIAL ONE (00:09)
[2019-11-18] MEDS ORDERED: Sodium Chloride 0.9% 10 ML ONE (00:09)
[2019-11-18] MEDS ORDERED: Phenylephrine 40 mcg/mL 10mL (400mcg) SYRINGE ONE (00:09)
[2019-11-18] MEDS ORDERED: Morphine PF AMP (0.5MG/ML) 5 MG/10 ML AMP ONE (00:36)
[2019-11-18] MEDS ORDERED: Ondansetron 4 mg VIAL 2 MG/ML 2 ml VIAL IV PRN (01:01)
[2019-11-18] MEDS ORDERED: DiMENhydriNATE IV 50 mg/ml 1 ml VIAL IV PUSH PRN (01:01)
[2019-11-18] MEDS ORDERED: Naloxone 0.4 mg VIAL 0.4 mg/ml 1 ml VIAL IV PRN (01:01)
[2019-11-18] MEDS ORDERED: Acetaminophen IV 1 GM/100ML 1,000 MG/100 ML VIAL IVPB ONE (01:06)
[2019-11-18] MEDS ORDERED: Witch Hazel PAD JAR TOPICAL PRN (07:55)
[2019-11-18] MEDS ORDERED: Lactated Ringers 1000 ml BAG 1,000 ML IV SCH (08:00)
[2019-11-18 09:24] LABS: ABS Lymphocytes 0.9 10^3/ul (1.0-4.8); ABS Monocytes 0.5 10^3/ul (0-0.8); Hematocrit 33 % (35-47); Hemoglobin 11.6 g/dL (12.0-16.0); Lymphocyte % 6.4 %; Mean Corpuscular HGB Conc 36 g/dL (31-36); Mean Corpuscular Hemoglobin 34 pg (27-31); Mean Corpuscular Volume 97 fL (80-97); Mean Platelet Volume 8.8 fL (7.4-10.4); Platelet Count 162 10^3/uL (150-450); Red Blood Count 3.38 10^6 /uL (3.70-4.87); Red Cell Distribution Width 13 % (10-15); White Blood Count 13.9 10^3/uL (3.5-10.8)
[2019-11-20 08:03] VITALS: BP 121/74
== END 2019-11-20 12:15 | disposition home or self-care (01) | DRG 540 ==
LOC: MCHOBOUT 13:06 → MCHOB 14:20
PROVIDERS: ADMIT Obstetrics & Gynecology; ATTEND Obstetrics & Gynecology